=== PATIENT | male | born 1980 | race Caucasian/White ===

== ENCOUNTER 2018-04-27 15:30 | Outpatient (RCR) | payer MEDICAID, SELFPAY ==
--- NOTE | 2018-04-27 10:38 | PTTR_ITS ---
DATE: 04/27/18 SUBJECTIVE: Brandon states he had a steroid injection under fluoroscopy with no significant change in symptoms. Ericson as though it did lubricate his shoulder a bit more, but did not note any significant improvements in his ROM. We discussed that that was not the intention of the injection, and again review the presentation of his shoulder with decreased ROM secondary to his capsular and labral repair along with presentation of adhesive capsulitis from being in a sling multiple weeks without performing any Codmans post op. We discussed resumption of P.T., more so from a Wellness stand point, which he agrees with. OBJECTIVE: Recheck- Patient's AROM is still limited to 85 to 90 flexion, 70 abduction and AAROM 100 to 105 , but with excessive scapular substitution. Ext rotation 5 A and 15 AA. Int rotation to L5. Strength 4-/5 ext rotation and abduction, 4/5 flexion and 5/5 int rotation. Manual therapy: ([id number]). Therapeutic procedure: (61647 x1). Left glenohumeral joint mobs, lateral distractions, caudal glides, posterior and inferior mobs, hold relax mobs into external rotation and scapular plane abduction with an inferior and posterior glide. Then worked on some UE strengthening, more so to see if this was tolerable for Brandon, performing bench press with 10 / 15# dumb bells with tactile and verbal cues for proper scapular positioning to avoid compensatory movement patterns. He declined the need for ice post treatment.330 min Direct treatment time: 45 minutes Assessment: No significant change in ROM at this point. Pain seems to be well managed. He agrees to pursue more of a Wellness global strengthening program. Do not see any need to continue with manual therapy as we have not made any significant change. I did, however, recommend that he continue with his self mobilization to maintain flexibility of the shoulder. Plan: Have Brandon see Ravin Morris ATC for initiation of a Wellness Program. MM/gc
--- NOTE | 2018-05-07 08:37 | PTTR_ITS ---
DATE: 05/07/18 NO CHARGE OBJECTIVE: Today I saw Brandon for initiation of MSP. I designed a two day a week strengthening program for Brandon. He performed Day #1 today. He will come to P.T. 2x per week for the next 4 weeks. I will work with him, instructing him in Day #2 strengthening next Thursday. Will have Brandon perform this program x4 weeks prior to modifications and upgrades. Brandon had no difficulty with today's exercises from a pain stand point. It was extremely challenging to get him into a modified plank position due to ROM of his shoulder. We modified going on the plinth. Will continually look to stress Brandon's shoulder within a conservative environment in terms of ROM, as well as working total body conditioning. Direct treatment time: 2:00 til 3:00 P.M. TRUMAN/shannan
--- NOTE | 2018-05-14 14:00 | NT_ITS ---
05/14/18 Today he was instructed into Day 2 of a MSP. Brandon performed all exercises well. Still limited with weight bearing and modified plank throughout the L shoulder. Brandon does report he had a positive experience after his last session completing work out where he notes not needing pain medication and reports improved sleep. I did discuss with Brandon the importance getting on a consistent schedule 2x a week now that he is on MSP and has flexibility. NO CHARGE. RF/dl
--- NOTE | 2018-05-19 13:00 | PTTR_ITS ---
DATE: 05/19/18 Did not show for today's appt.
== END 2018-05-21 23:59 | disposition home or self-care (01) ==
LOC: PT 15:30
PROVIDERS: PCP Family Medicine; Referring Provider Orthopaedic Surgery Adult Reconstructive Orthopaedic Surgery; Visit Provider Orthopaedic Surgery Adult Reconstructive Orthopaedic Surgery
DX: Z47.89 Encounter for other orthopedic aftercare (principal); M65.812 Other synovitis and tenosynovitis, left shoulder
CPT/HCPCS: 97110; 97140

== ENCOUNTER 2018-08-06 23:30 | Emergency (ER) | payer MEDICAID, SELFPAY ==
[2018-08-06 23:33] VITALS: BP 163/94; PULSE 109; RESP 20; TEMP 37.1; O2SAT 97
[2018-08-06 23:37] VITALS: RESP 24
--- NOTE | 2018-08-06 23:50 | W.ED.GENAD ---
Discharge Plan Disposition Patient Disposition: HOME Condition: Good Discharge Details Chief Complaint: Vascular Clinical Impression: Right calf pain Primary Care Provider: James Bragg ED Provider: Nabor Stark Meds and New Rx's Prescriptions: Continue magnesium 200 mg tablet 200 mg PO DAILY RF: 0 bisacodyl [Dulcolax (bisacodyl)] 5 mg tablet,delayed release (DR/EC) 5 mg PO ONCE Qty: 4 RF: 0 polyethylene glycol 3350 [Miralax] 17 gram/dose powder See Label Instructions .ROUTE .COMPLEX Qty: 255 RF: 0 omega-3 fatty acids-fish oil [Fish Oil] 1 EACH capsule 2 ea PO DAILY RF: 0 ELASTIC STOCKINGS RF: 0 cholecalciferol (vitamin D3) 1,000 UNIT tablet 1,000 unit PO DAILY RF: 0 riboflavin (vitamin B2) [Vitamin B-2] 100 MG tablet 400 mg PO DAILY RF: 0 ascorbic acid (vitamin C) 1,000 MG tablet,chewable 1 tab PO BID RF: 0 multivitamin 1 EACH capsule 1 tab PO DAILY RF: 0 Discharge Instructions Additional Instructions: We will have you follow up back here at the hospital in the morning for ultrasound to rule out clot. You were given a dose of blood thinner to cover for blood clot. Return to ED for chest pain, shortness of breath, syncope, other problems Referrals: [facility] [Provider Group] Medical Decision Making Patient with chronic bilateral lower extremity edema. Complains of pain in the right calf but does not have significant tenderness. Slightly positive Homans sign. DP pulses intact. States he feels like it will not go away. Discussed getting ultrasound in the morning and simply treating with Sandra bansal. He is agreeable with this plan. We will check CBC, BMP, d-dimer. Patient's CBC and chemistries are fine. D-dimer is positive. We will go ahead and give Sandra bansal and have him come back in the morning for ultrasound. Requisition filled out. Return to ED if chest pain, shortness of breath, syncope. Lab Data Lab results reviewed: Yes I reviewed the patient's lab results. HPI General Mode of arrival: ambulatory. Date/Time Provider Initiated Documentation: 08/06/18 23:37. Limitations to Documentation: no limitations. Information obtained by: patient. HPI Narrative: Patient presents to ED with right calf pain. He woke up in the middle of the night last night with calf pain that felt like a charley horse. However, he has continued to have discomfort all day. He thought it was a little bit red and swollen but it seems better. He has bilateral lower extremity swelling and stopped taking his diuretics because of migraines. He does wear SARITA stockings. He denies any fever, chills, chest pain, shortness of breath. He has no history of clots. Related Data Home Medications Medication Instructions Recorded Confirmed ascorbic acid (vitamin C) 1 tab PO BID 07/27/16 05/31/18 multivitamin 1 tab PO DAILY 07/27/16 08/06/18 riboflavin (vitamin B2) [Vitamin 400 mg PO DAILY 07/27/16 08/06/18 B-2] Elastic Stockings 06/08/17 05/31/18 omega-3 fatty acids-fish oil [Fish 2 ea PO DAILY 06/08/17 08/06/18 Oil] cholecalciferol (vitamin D3) 1,000 unit PO DAILY 05/04/18 08/06/18 bisacodyl 5 mg tablet,delayed 5 mg PO ONCE #4 tab 05/31/18 08/06/18 release magnesium 200 mg tablet 200 mg PO DAILY 05/31/18 08/06/18 polyethylene glycol 3350 17 See Label Instructions .ROUTE 05/31/18 08/06/18 gram/dose oral powder .COMPLEX #255 gm Previous Rx's Medication Instructions Recorded bisacodyl 5 mg tablet,delayed 5 mg PO ONCE #4 tab 05/31/18 release polyethylene glycol 3350 17 See Label Instructions .ROUTE 05/31/18 gram/dose oral powder .COMPLEX #255 gm Allergies Allergy/AdvReac Type Severity Reaction Status Date / Time omeprazole Allergy Mild Unverified 08/06/18 23:36 shellfish derived Allergy Mild Unverified 08/06/18 23:36 methylphenidate AdvReac Intermediate Agitation Unverified 08/06/18 23:36 General Stated Complaint: Vascular JUANCARLOS: 3 Review of Systems Constitutional Denies chills and Denies fever(s) Cardiovascular Denies chest pain, Denies diaphoresis, Denies syncope, Reports edema, Denies lightheadedness, Denies palpitations and Denies dyspnea Respiratory Denies dyspnea Musculoskeletal Reports myalgias, Reports muscle cramps and Reports numbness (BLE chronic) Integumentary/Breasts Reports erythema, Denies rash and Denies wounds Neurologic Denies syncope, Denies focal weakness and Reports numbness (BLE chronic) Endocrine Denies palpitations PFSH Family History Father Colon cancer Other Family history of colon cancer in father Medical History Family history of colon cancer in father Bilateral lower extremity edema (Chronic) Diverticular disease (Chronic) Elevated liver enzymes (Chronic) Major depression (Chronic) Morbid obesity (Chronic) Neuropathy (Chronic) Occipital headache (Chronic) Osteomalacia (Chronic) Sleep apnea, obstructive (Chronic) Hemorrhoids (Resolved) Rectal bleeding (Resolved) Recurrent dislocation, left shoulder (Resolved) Social History Smoking/Tobacco Use Status: Never Surgical History H/O arthroscopy of shoulder (Resolved) Exam Const General: cooperative and comfortable Nutritional Appearance: obese morbidly obese [facility] Head: normocephalic and atraumatic Neck Neck: normal visual inspection, trachea midline and supple Resp Effort & Inspection: normal respiratory effort Auscultation: clear to auscultation bilaterally Cardio Rate: regular rate Rhythm: regular rhythm Heart Sounds: S1 normal and S2 normal Pulses: dorsalis pedis pulses present Skin General skin exam: no erythema Rashes: no rashes Wounds: no wounds Neuro General: alert, oriented x3, no focal motor deficits and CN's II-XI intact bilaterally Extrem General: full ROM, no calf tenderness, edema (LE chronically) Laterality: bilateral and other (Slightly positive Homans sign on the right.) Course Vital Signs Temperature 98.8 F 08/06/18 23:33 Pulse 109 H 08/06/18 23:33 Respiratory Rate 20 08/06/18 23:33 Blood Pressure 163/94 H 08/06/18 23:33 Pulse Oximetry 97 08/06/18 23:33 Temperature 98.8 F 08/06/18 23:33 Temperature Source Temporal Artery Scan 08/06/18 23:33 Pulse 109 H 08/06/18 23:33 Respiratory Rate 24 08/06/18 23:37 Respiratory Effort Non-Labored 08/06/18 23:37 Respiratory Depth Normal 08/06/18 23:37 Respiratory Pattern Normal 08/06/18 23:37 Blood Pressure 163/94 H 08/06/18 23:33 Blood Pressure Position Sitting 08/06/18 23:33 Pulse Oximetry 97 08/06/18 23:33 Oxygen Delivery Method Room Air 08/06/18 23:33 Oxygen Flow Rate 0 08/06/18 23:33 Pain Level 6 08/06/18 23:37
[2018-08-07 00:13] LABS: HCT 44.2 % (40.0-50.0); HGB 15.1 g/dL (13.5-17.5); Mean Corp. HGB Concentration 34.2 g/dL (32.0-36.0); Mean Corpuscular Hemoglobin 29.4 pg (27.0-33.0); Mean Corpuscular Volume 86.2 fL (80-95); Mean Platelet Volume 9.3 fL (8.0-11.0); Platelet Count 286 x1000/uL (130-400); RBC 5.13 m/cumm (4.50-6.00); RBC Distribution Width 14.5 % (11.8-14.1); White Blood Cell Count 7.45 k/cumm (4.4-10.8)
[2018-08-07 00:20] LABS: Anion Gap 10.8 mmol/L (3-11); BUN 15 mg/dL (7-18); CO2 25.2 mmol/L (21.0-32.0); CREATININE 0.96 mg/dL (0.70-1.30); Calcium 9.3 mg/dL (8.5-10.1); Chloride 102 mmol/L (98-107); Glucose 92 mg/dL (70-100); Potassium 3.9 mmol/L (3.5-5.1); Sodium 138 mmol/L (136-145)
[2018-08-07 00:43] LABS: D-Dimer 882 ng/mlFEU (<500)
== END 2018-08-07 00:55 | disposition home or self-care (01) ==
PROVIDERS: Emergency Provider Emergency Medicine; PCP Family Medicine
DX: M79.661 Pain in right lower leg (principal); R79.1 Abnormal coagulation profile
CPT/HCPCS: 36415; 80048; 85027; 99283; 83735; 85379

== ENCOUNTER 2018-08-07 17:49 | Emergency (ER) | payer MEDICAID, SELFPAY ==
[2018-08-07 17:54] VITALS: BP 144/90; PULSE 88; RESP 18; TEMP 37.3; O2SAT 96
[2018-08-07] MEDS: Apixaban 5 MG TAB 40 MG PO (18:10)
--- NOTE | 2018-08-07 18:15 | ED.GENADUL_ITS ---
Discharge Plan Disposition Patient Disposition: HOME Discharge Details Chief Complaint: Recheck Clinical Impression: Right leg swelling Reason For Visit: RECHECK Primary Care Provider: James Bragg ED Provider: Ravin Munroe Home Meds and New Rx's Prescriptions: Continue magnesium 200 mg tablet 200 mg PO DAILY RF: 0 bisacodyl [Dulcolax (bisacodyl)] 5 mg tablet,delayed release (DR/EC) 5 mg PO ONCE Qty: 4 RF: 0 polyethylene glycol 3350 [Miralax] 17 gram/dose powder See Label Instructions .ROUTE .COMPLEX Qty: 255 RF: 0 omega-3 fatty acids-fish oil [Fish Oil] 1 EACH capsule 2 ea PO DAILY RF: 0 ELASTIC STOCKINGS RF: 0 cholecalciferol (vitamin D3) 1,000 UNIT tablet 1,000 unit PO DAILY RF: 0 riboflavin (vitamin B2) [Vitamin B-2] 100 MG tablet 400 mg PO DAILY RF: 0 ascorbic acid (vitamin C) 1,000 MG tablet,chewable 1 tab PO BID RF: 0 multivitamin 1 EACH capsule 1 tab PO DAILY RF: 0 Discharge Instructions Instructions: Apixaban (By mouth), Leg Edema (ED) Additional Instructions: You need to have an ultrasound of your right lower leg to assess for deep vein thrombosis (DVT). This can be a life threatening condition. You should have an ultrasound on Thursday. Return to the ER for results of the ultrasound. Please take blood thinner as follows: Take 2 tablets (10mg) twice a day. Please contact your primary care physician to arrange follow-up. Return to the ER for any worsening or new concerning symptoms. Referrals: James Bragg [Primary Care Provider] - Medical Decision Making 37-year-old male recently seen here in the emergency department for by lower extremity edema and pain, asked to return to the emergency department to provide additional Eliquis that was not given to him last night. Plan is for patient to have ultrasound as soon as possible on Thursday to assess for DVT. Patient is to follow-up with the emergency department and will need additional anticoagulation if there is a DVT identified. Patient should not be billed for this visit. HPI General Date/Time Provider Initiated Documentation: 08/07/18 18:04 . Limitations to Documentation: no limitations . Information obtained by: patient . HPI Narrative: 37-year-old male with multiple medical problems including morbid obesity, here today as a follow-up for his recent ED visit last night. Patient notes that he has leg swelling of the right lower extremity that has persisted. There was concern last night for potential DVT. He was given a dose of Eliquis and advised to follow-up today for ultrasound. Patient called the emerge department today and noted that he was not contacted by diagnostic imaging for scheduling of the ultrasound. Unfortunately there is no mechanical maintenance technician available today. I advised the patient he would need to continue to take eliquis until ultrasound could be obtained to rule out DVT and I offered to call prescription into pharmacy. Unfortunately, patient is unabel to afford prescription. Pt advised to return to the emergency department for additional Eliquis to treat potential DVT. Related Data Home Medications Medication Instructions Recorded Confirmed ascorbic acid (vitamin C) 1 tab PO BID 07/27/16 08/07/18 multivitamin 1 tab PO DAILY 07/27/16 08/07/18 riboflavin (vitamin B2) [Vitamin 400 mg PO DAILY 07/27/16 08/07/18 B-2] Elastic Stockings 06/08/17 05/31/18 omega-3 fatty acids-fish oil [Fish 2 ea PO DAILY 06/08/17 08/07/18 Oil] cholecalciferol (vitamin D3) 1,000 unit PO DAILY 05/04/18 08/07/18 bisacodyl 5 mg tablet,delayed 5 mg PO ONCE #4 tab 05/31/18 08/07/18 release magnesium 200 mg tablet 200 mg PO DAILY 05/31/18 08/07/18 polyethylene glycol 3350 17 See Label Instructions .ROUTE 05/31/18 08/07/18 gram/dose oral powder .COMPLEX #255 gm Previous Rx's Medication Instructions Recorded bisacodyl 5 mg tablet,delayed 5 mg PO ONCE #4 tab 05/31/18 release polyethylene glycol 3350 17 See Label Instructions .ROUTE 05/31/18 gram/dose oral powder .COMPLEX #255 gm Allergies Allergy/AdvReac Type Severity Reaction Status Date / Time omeprazole Allergy Mild Unverified 08/06/18 23:36 shellfish derived Allergy Mild Unverified 08/06/18 23:36 methylphenidate AdvReac Intermediate Agitation Unverified 08/06/18 23:36 General Stated Complaint: Recheck JUANCARLOS: 4 Review of Systems Cardiovascular Denies dyspnea Respiratory Denies dyspnea Exam Const General: cooperative, comfortable and no acute distress Nutritional Appearance: well nourished and overweight Resp Effort & Inspection: normal respiratory effort, able to speak in complete sentences and not labored Cardio Rate: regular rate Skin Rashes: no rashes (distal LEs) Extrem Right lower extremity: edema Details: 1+ Course Vital Signs Temperature 37.3 C 08/07/18 17:54 Pulse 88 08/07/18 17:54 Respiratory Rate 18 08/07/18 17:54 Blood Pressure 144/90 H 08/07/18 17:54 Pulse Oximetry 96 08/07/18 17:54 Temperature 37.3 C 08/07/18 17:54 Temperature Source Temporal Artery Scan 08/07/18 17:54 Pulse 88 08/07/18 17:54 Respiratory Rate 18 08/07/18 17:54 Respiratory Effort 08/07/18 18:00 Blood Pressure 144/90 H 08/07/18 17:54 Pulse Oximetry 96 08/07/18 17:54 Oxygen Delivery Method Room Air 08/07/18 17:54 Oxygen Flow Rate 0 08/07/18 17:54
== END 2018-08-07 18:21 | disposition home or self-care (01) ==
PROVIDERS: Emergency Provider Student in an Organized Health Care Education/Training Program; PCP Family Medicine
DX: R60.0 Localized edema (principal); Z76.0 Encounter for issue of repeat prescription

== ENCOUNTER 2018-08-09 00:59 | Outpatient (CLI) | payer MEDICAID, SELFPAY ==
--- NOTE | 2018-08-09 11:15 | DI.US_ITS ---
SYMPTOM/DIAGNOSIS: RT CALF PAIN, PERIPHERAL NEUROPATHY, VASCULAR DIS. 4-5 YRS DUPLEX VENOUS ULTRASOUND RT LOWER EXTREMITY. Duplex evaluation of the deep venous system was performed according to the usual protocol. The deep veins are freely compressible throughout to the level of the popliteal veins. There is normal doppler flow visible throughout and there is excellent flow augmentation with manual calf compression. CONCLUSION: No evidence of deep venous thrombosis.
== END 2018-08-09 01:19 ==
PROVIDERS: PCP Family Medicine; Visit Provider Emergency Medicine
DX: M79.661 Pain in right lower leg (principal); G62.9 Polyneuropathy, unspecified
CPT/HCPCS: 93971

== ENCOUNTER 2018-08-09 11:24 | Emergency (ER) | payer MEDICAID, SELFPAY ==
[2018-08-09 11:35] VITALS: BP 159/95; PULSE 83; RESP 20; TEMP 36.7; O2SAT 95
--- NOTE | 2018-08-09 12:28 | ED.GENADUL_ITS ---
Discharge Plan Disposition Patient Disposition: HOME Condition: Good Discharge Details Chief Complaint: Recheck Clinical Impression: Cramp in lower leg Primary Care Provider: James Bragg ED Provider: Ruperto Benjamin Home Meds and New Rx's Prescriptions: No Action magnesium 200 mg tablet 200 mg PO DAILY RF: 0 bisacodyl [Dulcolax (bisacodyl)] 5 mg tablet,delayed release (DR/EC) 5 mg PO ONCE Qty: 4 RF: 0 polyethylene glycol 3350 [Miralax] 17 gram/dose powder See Label Instructions .ROUTE .COMPLEX Qty: 255 RF: 0 omega-3 fatty acids-fish oil [Fish Oil] 1 EACH capsule 2 ea PO DAILY RF: 0 ELASTIC STOCKINGS RF: 0 cholecalciferol (vitamin D3) 1,000 UNIT tablet 1,000 unit PO DAILY RF: 0 riboflavin (vitamin B2) [Vitamin B-2] 100 MG tablet 400 mg PO DAILY RF: 0 ascorbic acid (vitamin C) 1,000 MG tablet,chewable 1 tab PO BID RF: 0 multivitamin 1 EACH capsule 1 tab PO DAILY RF: 0 Discharge Instructions Instructions: Leg Cramps (ED) Additional Instructions: U/S of the leg did not find a DVT. Referrals: James Bragg [Primary Care Provider] - Return if symptoms worsen Discharge Data Discharge Date/Time-TO BE ENTERED AT DEPARTURE: 08/09/18 16:05 Medical Decision Making Apprised him of negative DVT study. Advised to f/u with pcp as previously planned and back to ED if symptoms worsen. HPI General Date/Time Provider Initiated Documentation: 08/09/18 11:50 . Limitations to Documentation: no limitations . Information obtained by: patient . HPI Narrative: 37 y/o female here for results of U/S report. He was evaluated here two nights ago and started on Eliquis for presumptive DVT and advised to return Thursday to have U/S for confirmation. U/S negative for DVT. Related Data Home Medications Medication Instructions Recorded Confirmed ascorbic acid (vitamin C) 1 tab PO BID 07/27/16 08/09/18 multivitamin 1 tab PO DAILY 07/27/16 08/09/18 riboflavin (vitamin B2) [Vitamin 400 mg PO DAILY 07/27/16 08/09/18 B-2] Elastic Stockings 06/08/17 05/31/18 omega-3 fatty acids-fish oil [Fish 2 ea PO DAILY 06/08/17 08/09/18 Oil] cholecalciferol (vitamin D3) 1,000 unit PO DAILY 05/04/18 08/09/18 bisacodyl 5 mg tablet,delayed 5 mg PO ONCE #4 tab 05/31/18 08/07/18 release magnesium 200 mg tablet 200 mg PO DAILY 05/31/18 08/09/18 polyethylene glycol 3350 17 See Label Instructions .ROUTE 05/31/18 08/07/18 gram/dose oral powder .COMPLEX #255 gm Previous Rx's Medication Instructions Recorded bisacodyl 5 mg tablet,delayed 5 mg PO ONCE #4 tab 05/31/18 release polyethylene glycol 3350 17 See Label Instructions .ROUTE 05/31/18 gram/dose oral powder .COMPLEX #255 gm Allergies Allergy/AdvReac Type Severity Reaction Status Date / Time omeprazole Allergy Mild Unverified 08/09/18 11:37 shellfish derived Allergy Mild Unverified 08/09/18 11:37 methylphenidate AdvReac Intermediate Agitation Unverified 08/09/18 11:37 General Stated Complaint: Recheck JUANCARLOS: 5 Review of Systems Cardiovascular Reports system reviewed and no additional complaints, except as docu Respiratory Reports system reviewed and no additional complaints, except as docu Gastrointestinal Reports system reviewed and no additional complaints, except as docu Genitourinary Reports system reviewed and no additional complaints, except as docu Musculoskeletal Comments: leg cramps Integumentary/Breasts Reports system reviewed and no additional complaints, except as docu Hematologic/Lymphatic Reports system reviewed and no additional complaints, except as docu Exam Const General: cooperative, comfortable and no acute distress Nutritional Appearance: obese Orientation: alert, awake and oriented x3 HENMT Head: normal to inspection and atraumatic Ears: hearing grossly normal bilaterally and external ears normal General nose exam: external nose normal Eyes General: appearance normal, both eyes and all related structures Skin General skin exam: no rashes or lesions noted (to exposed skin) Extrem General: full ROM and normal gait Psych Appearance: grossly normal and well kempt Mood: congruent mood Thought Process: normal Thought Content: normal Insight: insight good Judgment: judgment good Course Vital Signs Temperature 36.7 C 08/09/18 11:35 Pulse 83 08/09/18 11:35 Respiratory Rate 20 08/09/18 11:35 Blood Pressure 159/95 H 08/09/18 11:35 Pulse Oximetry 95 08/09/18 11:35 Temperature 36.7 C 08/09/18 11:35 Temperature Source Skin 08/09/18 11:35 Pulse 83 08/09/18 11:35 Respiratory Rate 20 08/09/18 11:35 Respiratory Effort 08/09/18 11:35 Blood Pressure 159/95 H 08/09/18 11:35 Blood Pressure Position Sitting 08/09/18 11:35 Pulse Oximetry 95 08/09/18 11:35 Pain Level 3 08/09/18 11:35
== END 2018-08-09 16:05 | disposition home or self-care (01) ==
PROVIDERS: Emergency Provider Nurse Practitioner Family; PCP Family Medicine
DX: R25.2 Cramp and spasm (principal)

== ENCOUNTER 2020-08-28 04:21 | Outpatient (CLI) | payer BC, SELFPAY ==
[2020-08-28 08:15] LABS: HCT 43.2 % (40.0-50.0); HGB 14.3 g/dL (13.5-17.5); MCH 29.2 pg (27.0-33.0); MCHC 33.1 % (32.0-36.0); MCV 88.3 fL (80-95); MPV 9.2 fL (8.0-11.0); Platelet Count 260 10^3/uL (130-400); RBC 4.89 10^6/uL (4.36-5.78); RDW 13.5 % (11.8-14.1); WBC 6.69 10^3/uL (4.4-10.8)
[2020-08-28 09:10] LABS: ALT 59 U/L (16-63); AST 20 U/L (15-37); Albumin 3.4 g/dL (3.4-5.0); Alkaline Phosphatase 61 U/L (46-116); Anion Gap 7.9 mmol/L (3-11); BUN 14 mg/dL (7-18); Bilirubin, Total 0.6 mg/dL (0.2-1.0); CO2 25.1 mmol/L (21.0-32.0); CREATININE 0.94 mg/dL (0.70-1.30); Calcium 8.5 mg/dL (8.5-10.1); Chloride 105 mmol/L (98-107); Glucose 93 mg/dL (74-106); Potassium 4.2 mmol/L (3.5-5.1); Sodium 138 mmol/L (136-145)
[2020-09-03 13:12] LABS: Testosterone, Free 9.14 ng/dL (4.46-17.1); Testosterone, Total 315 ng/dL (240-950)
== END 2020-08-28 04:41 ==
PROVIDERS: PCP Family Medicine; Visit Provider Family Medicine
DX: K76.0 Fatty (change of) liver, not elsewhere classified (principal); R53.83 Other fatigue
CPT/HCPCS: 36415; 80053; 84402; 84403; 85027

== ENCOUNTER 2021-10-14 03:40 | Outpatient (CLI) | payer BC, SELFPAY ==
[2021-10-14 11:05] LABS: HCT 43.2 % (40.0-50.0); HGB 14.2 g/dL (13.5-17.5); MCH 30.1 pg (27.0-33.0); MCHC 32.9 % (32.0-36.0); MCV 91.7 fL (80-95); MPV 9.9 fL (8.0-11.0); Platelet Count 226 10^3/uL (130-400); RBC 4.71 10^6/uL (4.36-5.78); RDW 14.4 % (11.8-14.1); RDW-SD 48.8 fL; WBC 4.85 10^3/uL (4.4-10.8)
[2021-10-14 11:35] LABS: Hemoglobin A1C 4.8 % (<5.7)
[2021-10-14 11:54] LABS: ALT 38 U/L (16-63); AST 19 U/L (15-37); Albumin 3.5 g/dL (3.4-5.0); Alkaline Phosphatase 76 U/L (46-116); BUN 18 mg/dL (7-18); Bilirubin, Total 1.1 mg/dL (0.2-1.0); CREATININE 0.8 mg/dL (0.70-1.30); Calcium 8.9 mg/dL (8.5-10.1); Calculated LDL 82 mg/dL (<100); Chloride 103 mmol/L (98-107); Cholesterol 136 mg/dL (<200); Glucose 82 mg/dL (74-106); HDL Cholesterol 42 mg/dL (40-60); Potassium 4.1 mmol/L (3.5-5.1); Sodium 140 mmol/L (136-145); Total Protein 6.9 g/dL (6.4-8.2); Triglyceride 60 mg/dL (<150)
== END 2021-10-14 03:41 | disposition home or self-care (01) ==
LOC: LBO 03:40
PROVIDERS: PCP Family Medicine; Visit Provider Family Medicine
DX: Z00.00 Encounter for general adult medical examination without abnormal findings (principal); K76.0 Fatty (change of) liver, not elsewhere classified; Z13.220 Encounter for screening for lipoid disorders; Z13.1 Encounter for screening for diabetes mellitus
CPT/HCPCS: 36415; 80053; 80061; 85027; 83036

== ENCOUNTER 2022-03-06 17:54 | Outpatient (REF) | payer BC, SELFPAY ==
[2022-03-06 09:10] LABS: Sperm(Post-Vasectomy) Present
== END 2022-03-06 17:55 | disposition home or self-care (01) ==
LOC: NCHCN 17:54
PROVIDERS: PCP Family Medicine; Visit Provider Family Medicine
DX: Z98.52 Vasectomy status (principal); Z30.8 Encounter for other contraceptive management
CPT/HCPCS: 89321

== ENCOUNTER 2022-05-01 14:01 | Outpatient (REF) | payer SELFPAY ==
[2022-05-02 16:24] LABS: Appearance Normal; Container Type 50 mL Conical; Motile/Ejaculate 0.9 x10(6) (>=9.0); Motile/mL 0.6 x10(6) (>=6.0); Motility 11 % (>=40); Semen Volume 1.5 mL (>=1.5); Sperm/mL 5.5 x10(6) (>=15.0); Study Type Semen; Supravital Stain 22 % live (>=58)
[2022-05-05 12:31] LABS: Acrosom Defect 23.5 %; Head Size Abnormal 1.5 %; Strict Morph NL 2.5 % (>=4.0); Tail Defect 34.5 %
== END 2022-05-01 14:02 | disposition home or self-care (01) ==
LOC: LBN 14:01
PROVIDERS: PCP Family Medicine; Visit Provider Physician Assistant
DX: Z31.41 Encounter for fertility testing; N46.8 Other male infertility
CPT/HCPCS: 89240; 89310

== ENCOUNTER 2022-11-05 11:14 | Outpatient (CLI) | payer OTHER, SELFPAY ==
[2022-11-05 10:25] LABS: HCT 44.5 % (40.0-50.0); HGB 14.8 g/dL (13.5-17.5); MCH 30.1 pg (27.0-33.0); MCHC 33.3 % (32.0-36.0); MCV 90 fL (80-95); MPV 9.3 fL (8.0-11.0); Platelet Count 188 10^3/uL (130-400); RBC 4.92 10^6/uL (4.36-5.78); RDW 13.3 % (11.8-14.1); RDW-SD 44.6 fL; WBC 4.11 10^3/uL (4.4-10.8)
[2022-11-05 11:59] LABS: ALT 58 U/L (16-63); AST 29 U/L (15-37); Albumin 3.7 g/dL (3.4-5.0); Alkaline Phosphatase 48 U/L (46-116); Anion Gap 6.9 mmol/L (3-11); BUN 21 mg/dL (7-18); CO2 30.1 mmol/L (21.0-32.0); CREATININE 0.8 mg/dL (0.70-1.30); Calcium 9.1 mg/dL (8.5-10.1); Chloride 105 mmol/L (98-107); Estimated GFR 113.32 (mL/min/1.73m2); Glucose 93 mg/dL (74-106); Potassium 4.3 mmol/L (3.5-5.1); Sodium 142 mmol/L (136-145); Total Protein 7.4 g/dL (6.4-8.2); Vitamin B12 654 pg/mL (193-986)
[2022-11-05 12:10] LABS: Uric Acid 5.2 mg/dL (3.5-7.2)
[2022-11-14 14:43] LABS: Testosterone, Free 16.3 ng/dL (4.46-17.1); Testosterone, Total 752 ng/dL (240-950)
== END 2022-11-05 11:15 | disposition home or self-care (01) ==
LOC: LBO 11:20
PROVIDERS: PCP Family Medicine; Visit Provider Family Medicine
DX: M79.671 Pain in right foot (principal); M79.672 Pain in left foot; K76.0 Fatty (change of) liver, not elsewhere classified; R53.83 Other fatigue
CPT/HCPCS: 36415; 80053; 84402; 84403; 85027; 82607; 84550

== ENCOUNTER 2023-12-14 17:07 | Emergency (ER) | payer BC, SELFPAY ==
[2023-12-14 17:10] VITALS: BP 168/79; PULSE 86; RESP 15; TEMP 37.4; O2SAT 98
[2023-12-14] MEDS: ACETAMINOPHEN 1,000 MG/100 ML BTL 400 MG IVPB (17:52)
[2023-12-14] MEDS: Normal Saline 500 ML IV (17:52)
[2023-12-14] MEDS: Prochlorperazine 10 MG/2 ML VIAL IVP (17:52)
--- NOTE | 2023-12-14 18:01 | ED.GENADUL_ITS ---
Discharge Plan Disposition Patient Disposition: Home Condition: Stable Discharge Details Clinical Impression: Headache Primary Care Provider: James Bragg ED Provider: Thu Rodríguez Home Meds and New Rx's Prescriptions: New cyclobenzaprine 10 mg tablet 10 mg PO Q8H Qty: 10 0RF Continued magnesium 200 mg tablet 400 mg PO DAILY vitamin B complex Tablet 1 tab PO DAILY ascorbic acid (vitamin C) 500 mg Tablet 500 mg PO DAILY Fish Oil 1 EACH capsule 2 ea PO DAILY cholecalciferol (vitamin D3) 1,000 UNIT tablet 1,000 unit PO DAILY tadalafil [Cialis] 20 mg tablet 20 mg PO DAILY PRN Rx Instructions: administer approximately 30min before sexual activity; do not use more than 1 dose per 24hrs multivitamin 1 EACH capsule 1 tab PO DAILY Discharge Instructions Instructions: General Headache (ED) Additional Instructions: Please follow-up with your primary care physician You may try taking the Flexeril as needed for pain Warm compresses or cool compresses what ever feels better 2 hours after You may take Tylenol 650 every 4-6 hours and ibuprofen 600 mg every 8 hours as needed for pain Return should you have worsening pain, pain, or should he have new or progressing symptoms Referrals: James Bragg [Primary Care Provider] - Discharge Data Discharge Date/Time-TO BE ENTERED AT DEPARTURE: 12/14/23 19:05 HPI General Date/Time Provider Initiated Documentation: 12/14/23 17:09 . HPI Narrative: This 43-year-old male presents with report of headache for the past week on the right side. History of similar headaches in the past but states this is the longest. States has had an occipital block in the past which has helped. Denies known traumatic injury to his neck. Denies any dizziness. Has photo and photophobia per patient. Denies any new medications. Denies fever or chills. Denies stiff neck but does state he has an ache on the right side of his neck posteriorly. Denies any vision change, speech, or sensation change. Related Data Home Medications Medication Instructions Recorded Confirmed multivitamin 1 tab PO DAILY 07/27/16 12/14/23 omega-3 fatty acids-fish oil 340 2 ea PO DAILY 06/08/17 12/14/23 mg-1,000 mg capsule (Fish Oil) cholecalciferol (vitamin D3) 25 1,000 unit PO DAILY 05/04/18 12/14/23 mcg (1,000 unit) tablet magnesium 200 mg tablet 400 mg PO DAILY 05/31/18 12/14/23 ascorbic acid (vitamin C) 500 mg 500 mg PO DAILY 07/02/20 12/14/23 tablet tadalafil 20 mg tablet (Cialis) 20 mg PO DAILY PRN 06/02/22 12/14/23 vitamin B complex 1 tab PO DAILY 08/18/22 12/14/23 cyclobenzaprine 10 mg tablet 10 mg PO Q8H #10 tabs 12/14/23 Previous Rx's Medication Instructions Recorded cyclobenzaprine 10 mg tablet 10 mg PO Q8H #10 tabs 12/14/23 Allergies Allergy/AdvReac Type Severity Reaction Status Date / Time omeprazole Allergy Mild Itching Unverified 12/14/23 17:16 shellfish derived Allergy Mild Itching Unverified 12/14/23 17:16 methylphenidate AdvReac Intermediate Agitation Unverified 12/14/23 17:16 General Stated Complaint: Headache JUANCARLOS: 3 Course Vital Signs Vital signs: Vital Signs Temperature 37.4 C 12/14/23 17:10 Pulse 86 12/14/23 17:10 Respiratory Rate 15 12/14/23 17:10 Blood Pressure 168/79 H 12/14/23 17:10 Pulse Oximetry 98 12/14/23 17:10 Temperature 37.4 C 12/14/23 17:10 Temperature Source Temporal Artery Scan 12/14/23 17:10 Pulse 86 12/14/23 17:10 Respiratory Rate 15 12/14/23 17:10 Respiratory Effort Normal 12/14/23 17:53 Blood Pressure 168/79 H 12/14/23 17:10 Blood Pressure Position Sitting 12/14/23 17:10 Pulse Oximetry 98 12/14/23 17:10 Oxygen Delivery Method Room Air 12/14/23 17:10 Oxygen Flow Rate 0 12/14/23 17:10 Procedures Nerve Block Nerve Block 1: Time out performed: Yes Local Anesthetic: Lidocaine 1% Amount of anesthesia used (mL): 2.5 Side: right Nerve Blocks: occipital Procedure Successful: Yes Patient Tolerated Procedure: well Complications: none Medical Decision Making 43-year-old male presenting with past medical history consistent with migraine headaches, has required occipital nerve block in the past Patient is neurologically intact, alert and oriented, no acute distress, GCS 15, alert and oriented x 4, cranial nerves II through XII intact, ambulatory steady gait, reproducible tenderness over occipital nerve, no hemotympanum or mastoid tenderness, pupils equal round reactive to light and accommodation, extraocular muscles intact No meningismus, no carotid bruit No indication for CT imaging at this time as patient received typical migraine cocktail with Compazine, fluids, and occipital nerve block and had complete resolution of symptoms, remains neurologically intact, alert and oriented x 4 Given low threshold to return with new or worsening complaints Return precautions reviewed and patient expressed understanding Quality:SDOH Health Related Social Needs: No Data to Display PFSH All Active Problems (Updated 12/14/23 @ 18:54 by MERNA Anaya) Headache (Acute) 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) Scrotal pain (Acute) Medical History Bilateral lower extremity edema Chronic constipation Diverticular disease Elevated liver enzymes Foot pain Hemorrhoids Knee pain Leg cramps Major depression Morbid obesity Neuropathy Occipital headache Osteomalacia Rectal bleeding Recurrent dislocation, left shoulder Sleep apnea, obstructive Thrombosed external hemorrhoid Surgical History H/O arthroscopy of shoulder Family History Father Colon cancer Other Family history of colon cancer in father Social History Smoking/Tobacco Use Status: Never Smoking risk assessment performed?: Yes Alcohol Intake: current Alcohol Intake frequency: holidays/special occasions only Drug use: Never Substance use type: does not use Housing: apartment Do you feel safe in your relationship?: Yes
== END 2023-12-14 19:05 | disposition home or self-care (01) ==
LOC: ER 19:07
PROVIDERS: Emergency Provider Physician Assistant; PCP Family Medicine
DX: R51.9 Headache, unspecified (principal); Z86.69 Personal history of other diseases of the nervous system and sense organs
CPT/HCPCS: 64405; 96365; 96375; 99284; 99283; J0131; J0780

== ENCOUNTER 2024-08-22 07:42 | Day surgery (SDC) | payer BC, SELFPAY ==
--- NOTE | 2024-08-21 15:16 | W.PM.DSUDISC ---
Date of service: 08/22/24 Discharge Plan Disposition Patient Disposition: Home Condition: Good Discharge Details Reason For Visit: screening colonoscopy Attending Provider: Jamie Moses Primary Care Provider: Portillo Blanc Home Meds and New Rx's Prescriptions: Continued magnesium 200 mg tablet 400 mg PO DAILY vitamin B complex Tablet 1 tab PO DAILY ascorbic acid (vitamin C) 500 mg Tablet 500 mg PO DAILY Fish Oil 1 EACH capsule 2 ea PO DAILY cholecalciferol (vitamin D3) 1,000 UNIT tablet 1,000 unit PO DAILY tadalafil [Cialis] 20 mg tablet 20 mg PO DAILY PRN Patient Comments: pt. reports nothing like that Rx Instructions: administer approximately 30min before sexual activity; do not use more than 1 dose per 24hrs gabapentin 100 mg capsule 100 mg PO TID multivitamin 1 EACH capsule 1 tab PO DAILY cyclobenzaprine 10 mg tablet 10 mg PO Q8H Qty: 10 0RF Discontinued bisacodyl [Dulcolax (bisacodyl)] 5 mg tablet,delayed release (DR/EC) 5 mg PO ONCE Qty: 4 0RF Rx Instructions: Take per colonoscopy instructions provided by ordering providers office polyethylene glycol 3350 17 gram/dose powder 17 g PO ONCE Qty: 238 0RF Rx Instructions: Take per colonoscopy instructions provided by ordering providers office Discharge Instructions Instructions: Colon polyps, Diverticulosis Additional Instructions: Néstor, was pleasure meeting you today, and I hope you are comfortable during the procedure. I did find and removed 3 polyps today. Two of these were very small, and the other 1 was medium in size. To the naked eye, none of the features are particularly worrisome, but to be safe, these will all be tested by the pathologist. Furthermore, polyps, and different varieties, and we use that information to guide the timing of your next colonoscopy. I also observed some diverticulosis like we talked about beforehand. I will attach a little bit of information here about typical approaches to diverticular management, as well as treatment of colon polyps. They have any questions in the meantime, please do not hesitate to ask, otherwise, my office will let you know once we have all the results. 1. If tolerated, consume a soft, low fiber diet for 1-2 days. 2[address] Do not drive, drink alcohol, operate machinery, make critical decisions, or do activities that require coordination or balance for 24 hours. 3. Because air was put into your colon during the procedure, expelling air from your rectum (passing gas or farting) is normal. 4. You may not have a bowel movement for 1-3 days because of the colonoscopy prep. This is normal. 5. Go directly to the emergency room if you notice any of the following: Develop chills (warm to touch), or if you have a thermometer and your temperature is above 101 Difficulty breathing or difficultly swallowing Persistent vomiting Severe abdominal pain, other than gas cramps Severe chest pain Black, tarry stools Any bleeding ? exceeding one tablespoon 6. Call your physician if the site where your intravenous was started becomes red, swollen, painful, and warm to touch. 7. Your physician has reviewed your pre-procedure medications. Please continue to take those medications as previously ordered. You will be given specific information/education regarding any changes to your medications before leaving. Activity:: Activity as Tolerated Diet:: As Tolerated Discharge Orders Discharge Orders: Discharge Order (Routine); Ordered 08/21/24 Ordered By: Jamie Moses DS: Diagnosis Discharge Diagnosis (1) Encounter for screening colonoscopy: Status: Acute Asessment and Plan: Follow-up on polypectomy results
--- NOTE | 2024-08-21 15:17 | W.COLOREPORT ---
Date of service: 08/22/24 Time of Service: 09:18 Colonoscopy Report Date of procedure: 08/22/24 Pre-op diagnosis general: screening colonoscopy Post-op diagnosis procedure note: other (Diverticulosis, colon polyps) Procedure: colonoscopy with polypectomy Surgeon: Jamie Moses Anesthesia Type: General:No Airway Estimated blood loss (mL): 10 Pathology: other (0.25 cm flat polyp at 220 cm, 0.25 cm flat polyp at 110 cm, 0.75 cm pedunculated polyp at 80 cm) Complications: None Disposition: same day Indications: Néstor is a 43 year old man with a first degree family historyr of colon cancer. He needs his first screening colonoscopy Prep: Miralax/Dulcolax Procedure Start Time: 08:38 Procedure End Time: 09:07 Retraction Time: 12 Findings: 0.25 cm flat polyp at 220 cm, 0.25 cm flat polyp at 110 cm, 0.75 cm pedunculated polyp at 80 cm Procedure Description: After the induction of anesthesia, and with the patient in left lateral decubitus position, I began by performing an external anorectal exam.? Perineum and skin were normal, as was the anal verge.? There was no evidence of external hemorrhoids.? Next, I performed a digital rectal exam.? I did not appreciate any abnormal findings.? Next, I advanced a colonoscope into the rectal vault.? I performed retroflexion.? This appeared normal.? Using insufflation, I then advanced the colonoscope beyond the rectal folds and into the sigmoid colon before advancing towards the cecum.? The scope was noted to be in the cecum by identification of the ileocecal valve and appendiceal orifice.? I then began withdrawing the colonoscope using repeated irrigation as necessary for full evaluation of the colonic mucosa. Around 120 cm from the anal verge was a 0.25 cm flat polyp. This was removed with cold forceps. There is minimal bleeding. Similarly, a 0.25 cm flat polyp was found at 110 cm from the anal verge. This was also removed with cold forceps without any issue. I resumed withdrawing the colonoscope. Around 80 cm from the anal verge was a 0.75 cm pedunculated polyp. This was removed with cold snare polypectomy. There was minimal amount of bleeding from the site. Polyp was completely excised. There is sigmoid diverticulosis. Once the scope was withdrawn to the level of the rectum, great care was taken to examine portions of the rectal folds.? Finally, the scope was withdrawn and the patient was brought to the same-day surgery recovery unit as the anesthetic wore off. ?The findings and instructions were shared with the patient prior to discharge. Gates Bowel Prep Gates Bowel Prep Right Colon: 3 Left Colon: 3 Transverse Colon: 2 Total Score: 8
--- NOTE | 2024-08-21 15:30 | W.ANESPRE ---
General Info Date of Service Date Performed: 08/22/24 Height: 5 ft 11 in Weight: 146.51 kg Body Mass Index (BMI): 45.0 Surgical Procedure: Operation Date: 08/22/24 09:05 Proposed Procedure Side Surgeon carmina Moses MD Meds Allergies and Home Medications Allergies Allergy/AdvReac Type Severity Reaction Status Date / Time omeprazole Allergy Mild Itching Verified 08/22/24 08:03 shellfish derived Allergy Mild Itching Verified 08/22/24 08:03 methylphenidate AdvReac Intermediate Agitation Verified 08/22/24 08:03 Home Medication ?Medication ?Instructions ?Recorded multivitamin 1 tab PO DAILY 07/27/16 omega-3 fatty acids-fish oil 340 2 ea PO DAILY 06/08/17 mg-1,000 mg capsule (Fish Oil) cholecalciferol (vitamin D3) 25 1,000 unit PO DAILY 05/04/18 mcg (1,000 unit) tablet magnesium 200 mg tablet 400 mg PO DAILY 05/31/18 ascorbic acid (vitamin C) 500 mg 500 mg PO DAILY 07/02/20 tablet tadalafil 20 mg tablet (Cialis) 20 mg PO DAILY PRN 06/02/22 vitamin B complex 1 tab PO DAILY 08/18/22 cyclobenzaprine 10 mg tablet 10 mg PO Q8H #10 tabs 12/14/23 gabapentin 100 mg capsule 100 mg PO TID 07/18/24 Current Visit Medications: Current Medications Generic Name Dose Route Start Last Admin Trade Name Freq PRN Reason Stop Dose Admin Ringer's Solution 1,000 mls @ 0 mls/hr 08/22/24 06:00 IV 09/18/24 23:59 INFUSION NEETA IV Miscellaneous Supplies 1 each 08/22/24 06:00 Iv Access IV 09/18/24 23:59 DIRECTED NEETA Ondansetron HCl 4 mg 08/21/24 15:18 Ondansetron 4 Mg/2 Ml Vial IVP 09/20/24 15:17 Q4H PRN PRN Nausea / Vomiting Sodium Chloride 0 ml 08/22/24 06:00 Normal Saline Flush 10 Ml Syr IV 09/18/24 23:59 PRN PRN Sodium Chloride 0 ml 08/22/24 06:00 Normal Saline 10 Ml Vial IJ 09/18/24 23:59 DIRECTED PRN Sterile Water 0 ml 08/22/24 06:00 Water,Injection,Sterile 10 Ml Vial IJ 09/18/24 23:59 DIRECTED PRN PFSH Active Problems Active Problems: Problem Status Onset Code Encounter for screening colonoscopy Acute Z12.11 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 Acute N46.9 Scrotal pain Acute N50.82 Medical History Medical History Bilateral lower extremity edema Chronic constipation Diverticular disease Elevated liver enzymes Foot pain Hemorrhoids Knee pain Leg cramps Major depression Morbid obesity Neuropathy Occipital headache Osteomalacia Rectal bleeding Recurrent dislocation, left shoulder Sleep apnea, obstructive Thrombosed external hemorrhoid Surgical History Surgical History H/O arthroscopy of shoulder Tobacco Smoking/Tobacco Use Status: Never Alcohol Alcohol Intake: never Substance Use Substance use: Never Substance use type: does not use Vital Signs and Lab Results Lab Results Blood Type / Crossmatch: No Data to Display Complete Blood Count: No Data to Display Complete Metabolic Panel: No Data to Display Liver Function Panel: No Data to Display Coagulation Panel: No Data to Display Cardiac Panel: No Data to Display Arterial Blood Gas: No Data to Display Venous Blood Gas: No Data to Display Pancreas Panel: No Data to Display Thyroid Panel: No Data to Display Infectious Disease: No Data to Display Blood Cultures: No Data to Display Toxicology Panel: No Data to Display Anesthesia Assessment and Plan Anesthesia History Personal History: No History of Anesthesia Complications Family History: No Family History of Anesthesia Complications Exercise Tolerance Exercise Tolerance: Metabolic Equivalents>4 Cardiac & Pulmonary Exam Cardiac Exam: Normal S1/S2 Heart Sounds Pulmonary Exam: Clear Bilateral Breath Sounds Implantable Cardiac Device Does patient have a Pacemaker or an ICD?: No Airway Exam Known Difficult Airway: No Mallampati Class: 3 Mouth Opening: Narrow (< 3cm) Thyromental Distance: Greater than 3 cm Neck Range of Motion: Full ROM Neck Circumference: Thick Teeth Condition: Normal Dentition ASA Classification ASA Score: ASA 3 Emergency Case?: No NPO Status NPO Status: NPO Clears >2 hours, Solids >8 hours Anesthesia Plan Resuscitation Status: Full Code Anesthesia Technique: General Anesthesia Airway Planned: Natural Airway Monitors Used: Standard Monitors Preoperative Comments:: 43 yo male for colo. Sig PMHx: HTN ( not on meds), LUANN (bipap), BMI >40, neuropathy, depression, never smoker Holter: sinus.
[2024-08-22 07:06] VITALS: BMI 45.0
[2024-08-22 08:00] VITALS: BP 151/85; PULSE 77; RESP 16; TEMP 36.6; O2SAT 96
[2024-08-22] MEDS: Normal Saline Flush 10 ML SYR IV (08:20)
--- NOTE | 2024-08-22 08:48 | BOWEL_PTH ---
PATIENT: Néstor Mancilla LOC: [facility] U#:[id number] AGE/SX: 43/M ROOM: RE08/22/[address]: Jamie Moses MD : [id number] BED: DIS: 08/22/2024 SPEC #: [id number] RECD: 08/22/24 13:04 STATUS: STONEY RECorey #: [id number] MATHEW: 08/22/24 08:[address]: Jamie Moses DEPT: Surgical Specimen RECD BY: Thu Yu ENTERED: 08/22/24 13:05 SP TYPE: Bowel OTHR DR: Portillo Blanc Tissues: 1 - BIOPSY BOWEL 2 - BIOPSY BOWEL 3 - BIOPSY BOWEL Procedures: GROSS AND MICRO LEVEL 4 Comments: [id number]
[2024-08-22 09:12] VITALS: BP 118/98; PULSE 67; RESP 16; TEMP 36.2; O2SAT 96
--- NOTE | 2024-08-22 09:19 | W.ANESPOSTOP ---
Postoperative Evaluation Date, Time and Location Date Performed: 08/22/24 Time Performed: 09:19 Patient Location: Day Surgery Unit Vital Signs Most Recent Imported Vital Signs: Most Recent Vital Signs Temp Pulse Resp BP Pulse Ox 36.2 C L 67 16 118/98 H 96 08/22/24 09:12 08/22/24 09:12 08/22/24 09:12 08/22/24 09:12 08/22/24 09:12 Pain Score Most Recent Pain Score: Most Recent Pain Score Pain Level 0 08/22/24 09:12 Assessment Mental Status: Awake (Alert & Oriented to Patient Baseline) Airway and Respiratory Function: Patent airway with normal (patient baseline) respiratory exam Cardiovascular Function: Hemodynamically Stable Hydration Status: Adequately Hydrated Nausea & Vomiting: No Nausea or Vomiting Pain: Pt. Denies Any Pain Peripheral Nerve Block: Patient did not receive a nerve block
[2024-08-22 09:41] VITALS: BP 123/77; PULSE 64; RESP 18; TEMP 36.2; O2SAT 97
== END 2024-08-22 10:07 | disposition home or self-care (01) ==
LOC: SUR 07:44
PROVIDERS: PCP Student in an Organized Health Care Education/Training Program; Visit Provider Surgery
PROC: 0DJD8ZZ Inspection of Lower Intestinal Tract, Via Natural or Artificial Opening Endoscopic (ICD-10-PCS; CPT 45378; principal; 2024-08-22 09:00)
DX: Z12.11 Encounter for screening for malignant neoplasm of colon (principal); D12.3 Benign neoplasm of transverse colon; K57.30 Diverticulosis of large intestine without perforation or abscess without bleeding; D12.4 Benign neoplasm of descending colon; K63.89 Other specified diseases of intestine
CPT/HCPCS: 45385; 45380; 88305; J2704